=== PATIENT | female | born 1940 | race Caucasian/White ===

== ENCOUNTER 2016-11-27 18:15 | Emergency (ER) | payer MEDICARE, OTHER ==
[~2016-11-27] VITALS: Ht 152.4 cm; Wt 56.8 kg
[~2016-11-27 18:15] MED LIST: THEM PO
[2016-11-27 18:25] VITALS: BP 142/87
--- NOTE | 2016-11-27 19:03 | NUR ---
PATIENT TO OF3 AT THIS TIME.
--- NOTE | 2016-11-27 19:13 | NUR ---
Patient being evaluated by PA at bedside.
--- NOTE | 2016-11-27 19:18 | NUR ---
76Y/F PT. PRESENTS TO ED WITH C/O RASH TO BILATERAL ARMS AND LEFT HAND WITH ITCHING X2WKS. HX. ARTHRITIS. AAO X4, AMBULATORY WITH STEADY GAIT. RESPIRATIONS ROOM AIR EVEN AND UNLABORED. C/O RASH TO BL. ARM AND ITCHING. NO S/SX OF DISTRESS AT THIS TIME. ER MD MADE AWARE OF PT. STATUS.
[2016-11-27 19:47] VITALS: BP 142/87
--- NOTE | 2016-11-27 19:48 | NUR ---
Patient discharged with v/s stable. Written and verbal after care instructions given and explained. Patient alert, oriented and verbalized understanding of instructions. Ambulatory with steady gait. All questions addressed prior to discharge. ID band removed. Patient advised to follow up with PMD. Rx of KEFLEX 500 MG given. Patient educated on indication of medication including possible reaction and side effects. Opportunity to ask questions provided and answered.
== END 2016-11-27 19:48 | disposition home or self-care (01) ==
LOC: MED 18:15
DX: L03.114 Cellulitis of left upper limb (principal); L29.9 Pruritus, unspecified
CPT/HCPCS: 99283